=== PATIENT | male | born 1985 | race Caucasian/White ===

== ENCOUNTER → 2018-09-24 | Outpatient (CLI) | payer OTHER ==
--- NOTE | 2018-09-24 17:37 | REP ---
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 No comparison imaging. Technique: Helical scanning is acquired and 1 mm axial images are reformatted. Bone targeted magnified axial and coronal MPR images are generated. CT findings: Mastoid aeration is normal bilaterally. External and internal auditory canals have a normal appearance. Vestibular and cochlear apparatus are intact bilaterally. The middle ear cavity is fully aerated bilaterally. No ossicular abnormality is seen in either middle ear. No bony erosive changes seen. The other visualized paranasal sinuses are clear. Skull base soft tissues are normal and symmetric. The visualized intracranial structures are unremarkable. Impression: Normal IAC CT study. Electronically Signed by Kiko Saleh MD 09/25/2018 08:07 A
== END ==
LOC: M RAD 15:33
PROVIDERS: ATTEND Otolaryngology
DX: H90.A32 Mixed conductive and sensorineural hearing loss, unilateral, left ear with restricted hearing on the contralateral side (principal)

== ENCOUNTER → 2019-02-11 | Outpatient (CLI) | payer OTHER ==
--- NOTE | 2019-02-11 17:03 | REP ---
Left shoulder three views: There are no comparisons. The acromioclavicular joint is mildly widened. This is nonspecific and could be congenital, postsurgical or post-traumatic. Mineralization is normal. There is no fracture or dislocation. There is a small metallic plate superimposed over the proximal humeral shaft, possibly from biceps tendon tenodesis. Impression: No fracture or dislocation. Mildly widened acromioclavicular joint as described. Metallic plate superimposed over the proximal humeral shaft. Electronically Signed by Michael Porter MD 02/11/2019 04:55 P
== END ==
LOC: M LRY 16:36
PROVIDERS: ATTEND Nurse Practitioner Family
DX: S49.92XA Unspecified injury of left shoulder and upper arm, initial encounter (principal); X58.XXXA Exposure to other specified factors, initial encounter; Y92.89 Other specified places as the place of occurrence of the external cause
CPT/HCPCS: 73030; G0463